=== PATIENT | female | born 1940 | race Caucasian/White ===

== ENCOUNTER 2023-09-05 15:05 | Emergency (ER) | payer OTHER, MEDICARE ==
[~2023-09-05] VITALS: Ht 170.2 cm; Wt 65.3 kg
[~2023-09-05 15:05] MED LIST: ASPI81CH PO
[2023-09-05] MEDS ORDERED: HYDR1TAB94 PO (17:56)
[2023-09-05 19:55] VITALS: BP 137/89
== END 2023-09-05 20:08 | disposition home or self-care (01) ==
LOC: ER 15:05
DX: S42.302A Unspecified fracture of shaft of humerus, left arm, initial encounter for closed fracture (principal); S42.212A Unspecified displaced fracture of surgical neck of left humerus, initial encounter for closed fracture; S82.092A Other fracture of left patella, initial encounter for closed fracture; E78.00 Pure hypercholesterolemia, unspecified; I25.10 Atherosclerotic heart disease of native coronary artery without angina pectoris; Z79.82 Long term (current) use of aspirin; I50.30 Unspecified diastolic (congestive) heart failure; W01.10XA Fall on same level from slipping, tripping and stumbling with subsequent striking against unspecified object, initial encounter; Y92.512 Supermarket, store or market as the place of occurrence of the external cause; Y93.01 Activity, walking, marching and hiking
CPT/HCPCS: 29505; 70450; 73030; 73140; 73562-LT; 93005; 93010; 96374-59; 96375-59; 99284-25; A9270; J1170; J2405

== ENCOUNTER 2024-08-18 17:47 | Emergency (ER) | payer MEDICARE ==
[~2024-08-18] VITALS: Ht 162.6 cm; Wt 65.3 kg
[~2024-08-18 17:47] MED LIST changes: +HYDR1TAB94 PO
[2024-08-18 17:54] VITALS: BP 160/73
[2024-08-18] MEDS ORDERED: Lidocaine 4% 1 Patch TOP ONE (22:05)
[2024-08-18] MEDS ORDERED: Acetaminophen 500 MG Tab PO ONE (22:05)
== END 2024-08-18 23:07 | disposition home or self-care (01) ==
LOC: ER 17:47
DX: S50.02XA Contusion of left elbow, initial encounter (principal); R07.81 Pleurodynia; E78.00 Pure hypercholesterolemia, unspecified; V89.2XXA Person injured in unspecified motor-vehicle accident, traffic, initial encounter; Z79.82 Long term (current) use of aspirin
CPT/HCPCS: 71046; 73080; A9270